=== PATIENT | female | born 1985 | race African-American/Black ===

== ENCOUNTER 2016-12-05 03:27 | Emergency (ER) | payer OTHER ==
[2016-12-05 03:39] VITALS: TEMP 98.3
[2016-12-05] MEDS ORDERED: ALBUTEROL NEBULIZED 2.5 MG/3 ML INHALATION STA (04:13)
[2016-12-05] MEDS ORDERED: PENICILLIN VK 500MG STARTER 4 TAB BTL PO STA (04:13)
[2016-12-05] MEDS ORDERED: predniSONE 20 MG TAB PO STA (04:13)
--- NOTE | 2016-12-05 04:15 | ED ---
SOB HPI - General Chief Complaint: Shortness of Breath Stated Complaint: SOB, foot pain, dental abscess Time Seen by Provider: 12/05/16 03:52 Source: patient Mode of arrival: ambulatory Limitations: no limitations - History of Present Illness Initial Comments: This patient is a 31-year-old who is 3 complaints. The first is that she is feeling. He has history of chronic bronchitis states that she is out of her albuterol inhaler is over. She denies chest pain. Denies fever or chills. Denies productive cough. The patient also has some pain along the lateral aspect of the foot. This been going on for 2 days and is worse when she walks. She states that she has been spending a lot of time on her feet. She states it is also possible the left ankle. The pain is minimal she is up and walking. She indicates the area of the fifth metatarsal. Finally the patient complains of pain to one of the mandibular teeth. She indicates that this tooth broke several months ago and she has been having intermittent pains since then. Patient denies significant swelling and denies fever or chills. MD Complaint: shortness of breath -: days(s) - Related Data Home Medications Medication Instructions Recorded Confirmed Albuterol Sulfate [Ventolin HFA] 2 puff INHALATION RT-Q6H PRN 03/14/16 03/14/16 Ibuprofen [Motrin] 200 mg PO Q6HR PRN 03/14/16 03/14/16 Previous Rx's Medication Instructions Recorded traMADol HCl [Ultram] 50 mg PO Q6H PRN #20 tab 03/14/16 Albuterol Inhaler [Ventolin Hfa 1 - 2 puff INHALATION Q6HR PRN #1 12/05/16 Inhaler] inhaler Penicillin V Potassium [Pen Vee K] 500 mg PO QID #28 tab 12/05/16 predniSONE 20 mg PO BID #8 tab 12/05/16 Allergies Allergy/AdvReac Type Severity Reaction Status Date / Time No Known Allergies Allergy Verified 12/05/16 03:38 Review of Systems ROS Statement: Those systems with pertinent positive or pertinent negative responses have been documented in the HPI. ROS Other: All systems not noted in ROS Statement are negative. Constitutional: Denies: fever, chills Eyes: Denies: eye pain Respiratory: Reports: cough, dyspnea, wheezes. Denies: hemoptysis Cardiovascular: Denies: chest pain, palpitations, orthopnea, edema Gastrointestinal: Denies: abdominal pain, vomiting, diarrhea Genitourinary: Denies: dysuria, hematuria Musculoskeletal: Reports: as per HPI, joint swelling Skin: Denies: rash Neurological: Denies: headache, weakness, numbness Past Medical History Past Medical History: Asthma History of Any Multi-Drug Resistant Organisms: None Reported Past Surgical History: No Surgical Hx Reported Additional Past Surgical History / Comment(s): 2 vaginal delivery Past Psychological History: No Psychological Hx Reported Smoking Status: Former smoker Past Alcohol Use History: None Reported Past Drug Use History: None Reported General Exam Limitations: no limitations General appearance: alert, in no apparent distress Head exam: Present: atraumatic, normocephalic Eye exam: Present: normal appearance ENT exam: Present: mucous membranes moist, other (There are extensive caries to tooth #29. There is no detectable abscess.). Absent: normal oropharynx Neck exam: Present: normal inspection Respiratory exam: Present: wheezes. Absent: respiratory distress, rales, rhonchi, stridor, decreased breath sounds, prolonged expiratory Cardiovascular Exam: Present: regular rate, normal rhythm, normal heart sounds, other (Teague pedis pulses strong and symmetric. Capillary refill normal throughout the left foot). Absent: systolic murmur, diastolic murmur, rubs, gallop GI/Abdominal exam: Present: soft. Absent: tenderness, guarding, rebound Extremities exam: Present: normal inspection, full ROM, tenderness (Patient has some moderate tenderness along the lateral and inferior aspect of the left fifth metatarsal. No obvious deformity. Sensation and circulation appear intact.), normal capillary refill. Absent: pedal edema, joint swelling, calf tenderness Neurological exam: Absent: motor sensory deficit Skin exam: Present: warm, dry, intact, normal color. Absent: rash Course Vital Signs 12/05/16 12/05/16 12/05/16 03:33 04:34 04:38 Temperature 98.3 F Pulse Rate 88 88 88 Respiratory 18 Rate Blood Pressure 138/84 O2 Sat by Pulse 100 Oximetry Disposition Clinical Impression: Caries, Asthma, Foot pain, left Disposition: HOME SELF-CARE Condition: Good Instructions: Asthma (ED), Dental Caries (ED), Arthralgia (ED) Prescriptions: Albuterol Inhaler [Ventolin Hfa Inhaler] 1 - 2 puff INHALATION Q6HR PRN #1 inhaler PRN Reason: Wheezing Penicillin V Potassium [Pen Vee K] 500 mg PO QID #28 tab predniSONE 20 mg PO BID #8 tab Referrals: Karley Selby MD [Primary Care Provider] - 1-2 days
--- NOTE | 2016-12-05 04:55 | XR ---
EXAM: XR Left Foot Complete, 3 or More Views CLINICAL HISTORY: Reason: Pain TECHNIQUE: Frontal, lateral and oblique views of the left foot. COMPARISON: No relevant prior studies available. FINDINGS: Bones/joints: Unremarkable. No acute fracture. No dislocation. Soft tissues: Unremarkable. No radiopaque foreign body. IMPRESSION: Unremarkable left foot x-rays.
[2016-12-05] MEDS ORDERED: predniSONE 50 MG TAB PO STA (05:08)
[2016-12-05 05:46] VITALS: BP 127/83; PULSE 80; RESP 14
== END 2016-12-05 05:44 | disposition home or self-care (01) ==
LOC: EC 03:27
DX: J45.909 Unspecified asthma, uncomplicated (principal); M79.672 Pain in left foot; K02.9 Dental caries, unspecified; Z87.891 Personal history of nicotine dependence
CPT/HCPCS: 94640; 73630; 99285; J7512

== ENCOUNTER → 2021-01-20 | Outpatient (CLI) | payer OTHER ==
--- NOTE | 2021-01-20 14:59 | XR ---
Right knee History: M25.511, M25.512, M25.561, M54.2 3 views of the right knee Bone mineralization, joint spaces and alignment are maintained. There is no evident fracture or dislo cation. Difficult to exclude minimal effusion. IMPRESSION: No acute bone abnormality. Consider knee MRI for better evaluation.
--- NOTE | 2021-01-20 15:03 | XR ---
Bilateral shoulders HISTORY: M25.511, M25.512, M25.561, M54.2 3 views of each shoulder, total of 7 images There is a spinal curvature. Bone mineralization, joint spaces and alignment are maintained. Acromion spur may be present bilaterally. No evident fracture or dislocation. IMPRESSION: Correlate for impingement. Spinal curvature.
--- NOTE | 2021-01-20 15:06 | XR ---
Cervical Spine HISTORY: M25.511, M25.512, M25.561, M54.2 6 views of the cervical spine There is a spinal curvature. No significant foraminal encroachment present on oblique views, oblique views are not optimal the lower cervical spine however. Rudimentary cervical ribs are present at C7. There is reversal the normal cervical lordosis which can be seen in muscle spasm. Loss of disc height is present at C5-6, C6-7 with associated spondylosis C5-6 and C6-7. Prevertebral soft tissues are no rmal. Cervical vertebral bodies show preserved height and bone mineralization. IMPRESSION: Degenerative disc disease, thoracic scoliosis. Limitations of the oblique views. Reversal cervical lordosis.
== END | disposition home or self-care (01) ==
LOC: RADXRMAIN 10:26
PROVIDERS: ATTEND Family Medicine
DX: M50.30 Other cervical disc degeneration, unspecified cervical region (principal); M41.34 Thoracogenic scoliosis, thoracic region; M25.511 Pain in right shoulder; M25.512 Pain in left shoulder; M25.561 Pain in right knee
CPT/HCPCS: 72050

== ENCOUNTER → 2022-12-29 | Outpatient (CLI) | payer OTHER ==
--- NOTE | 2022-12-29 08:36 | MR ---
Chetna Barrett EXAMINATION TYPE: MRI ankle without DATE OF EXAM: 12/29/2022 History: Pain and lateral swelling since slip and fall injury June 2022 COMPARISON: None. Technique: Multiplanar, multisequence imaging of the left ankle is performed without contrast Standard multiplanar, multisequence MRI departmental protocol Multiplanar, multisequence images of the left ankle were acquired without contrast. FINDINGS: There is some subchondral cystic change in the inferior calcaneus at level of the subtalar joint. There is 8 mm focus of increased T2 signal or osseous edema in the anterior talus sagittal [place] 15. Ankle mortise symmetry is preserved. There is small posterior tibiotalar joint effusion. The anterior tibiofibular and the anterior talofibular ligaments are intact. The posterior syndesmosi s is intact. The medial deltoid ligament is intact. Plantar fascia appears unremarkable. Visualized Achilles tendon intact. The anterior extensor tendons are intact. The posterior flexor and peroneal tendons show some surroun ding fluid otherwise appear intact. Normal sinus tarsi fat is seen. Lisfranc joints are maintained. No significant spurring is evident. M ild subcutaneous edema over the lateral malleolus is noted. IMPRESSION: Possible multilevel tenosynovitis of the peroneal and flexor tendons. No tendon or ligame ntous tear. Small focus of abnormal bone marrow edema in the anterior calcaneus could reflect product s of altered walking mechanics related to patient pain. Mild subcutaneous edema over the lateral mall eolus.
== END | disposition home or self-care (01) ==
LOC: RADMRIMAIN 05:53
PROVIDERS: ATTEND Podiatrist
DX: S93.412D Sprain of calcaneofibular ligament of left ankle, subsequent encounter (principal); S93.492D Sprain of other ligament of left ankle, subsequent encounter; S86.312D Strain of muscle(s) and tendon(s) of peroneal muscle group at lower leg level, left leg, subsequent encounter; X58.XXXD Exposure to other specified factors, subsequent encounter